=== PATIENT | male | born 1935 | race African-American/Black ===

== ENCOUNTER 2021-08-12 10:01 | Outpatient (CLI) | payer MEDICARE, MEDICAID | END 2021-08-12 10:02 | disposition home or self-care (01) | LOC: BICULT 10:01 | PROVIDERS: ATTEND Family Medicine | DX: Z12.2 Encounter for screening for malignant neoplasm of respiratory organs (principal); Z13.6 Encounter for screening for cardiovascular disorders; Z87.891 Personal history of nicotine dependence | CPT/HCPCS: 71271; 76775 ==

== ENCOUNTER 2025-07-13 07:28 | Inpatient (IN) | payer OTHER, MEDICAID ==
[2025-07-13] MEDS ORDERED: Melatonin 3 MG TAB PO PRN (11:25)
[2025-07-13] MEDS ORDERED: Calcium Carbonate 500 MG ChewTAB PO PRN (11:25)
[2025-07-13] MEDS ORDERED: Acetaminophen 325 MG TAB PO PRN (11:25)
[2025-07-13] MEDS ORDERED: Bisacodyl 10 MG SUPP PR PRN (11:25)
[2025-07-13] MEDS ORDERED: Senokot S 8.6-50 MG TAB PO PRN (11:25)
[2025-07-13] MEDS ORDERED: Glucagon 1 MG/ML KIT IM PRN (11:35)
[2025-07-13] MEDS ORDERED: Dextrose 50% Abboject 50 ML SYRINGE SLOW IVP PRN (11:35)
[2025-07-13 11:45] VITALS: BMI 28.3
[2025-07-13 12:18] LABS: Magnesium 2.4 mg/dL (1.6-2.6)
[2025-07-13] MEDS ORDERED: HYDROcodone/Acetaminophen 5/325 mg Tablet PO PRN (13:32)
[2025-07-13] MEDS ORDERED: HYDROcodone/Acetaminophen 10/325 mg Tablet PO PRN (13:32)
[2025-07-14 07:16] LABS: #Basophils 0.06 10x3/uL (0.0-0.2); #Eosinophils 0.34 10x3/uL (0.0-0.7); #Monocytes 0.80 10x3/uL (0.11-0.59); #Neutrophils 6.51 10x3/uL (1.40-6.50); %Basophils 0.6 % (0.0-1.0); %Eosinophils 3.2 % (0.0-10.0); %Lymphocytes 27.6 % (21.0-51.0); %Monocytes 7.5 % (0.0-10.0); %Neutrophils 60.6 % (42.0-75.0); Hematocrit 45.9 % (42.0-52.0); Hemoglobin 15.5 g/dL (14.0-18.0); Mean Corpuscular Hemoglobin 29.3 pg (27.0-31.0); Mean Corpuscular Volume 86.8 fL (78.0-98.0); Platelet Count 149 10x3/uL (130-400); Red Blood Cell (RBC) Count 5.29 mill/uL (4.70-6.10); White Blood Cell (WBC) Count 10.72 10x3/uL (4.8-10.8)
[2025-07-14 07:37] LABS: Anion Gap 9 mmol/L (10-20); BUN (Urea Nitrogen) 14 mg/dL (8.4-25.7); Calc. Creatinine Clearance 50 mL/min (70-130); Calcium 10.4 mg/dL (7.8-10.44); Carbon Dioxide 24 mmol/L (23-31); Chloride 109 mmol/L (98-107); Glucose 110 mg/dL (83-110); Magnesium 2.3 mg/dL (1.6-2.6); Potassium 4.1 mmol/L (3.5-5.1); Sodium 138 mmol/L (136-145)
[2025-07-14] MEDS: Enoxaparin 40 MG (0.4 mL) SYRINGE SC SCH (09:23)
[2025-07-14 16:36] VITALS: BP 121/73; TEMP 98.3
== END 2025-07-14 17:01 | disposition home or self-care (01) | DRG 392 ==
LOC: OBS 07:28 → INTOOBSV 07:28 → OBSVTOIN 07-14 13:17
PROVIDERS: ADMIT Internal Medicine; ATTEND Internal Medicine
DX: K59.03 Drug induced constipation (principal); F11.20 Opioid dependence, uncomplicated; E78.5 Hyperlipidemia, unspecified; M19.90 Unspecified osteoarthritis, unspecified site; G89.29 Other chronic pain; F41.1 Generalized anxiety disorder; I12.9 Hypertensive chronic kidney disease with stage 1 through stage 4 chronic kidney disease, or unspecified chronic kidney disease; N18.31 Chronic kidney disease, stage 3a; E11.22 Type 2 diabetes mellitus with diabetic chronic kidney disease; I44.1 Atrioventricular block, second degree; I44.0 Atrioventricular block, first degree; Z98.890 Other specified postprocedural states; Z83.3 Family history of diabetes mellitus; Z79.4 Long term (current) use of insulin; Z79.84 Long term (current) use of oral hypoglycemic drugs; Z79.899 Other long term (current) drug therapy
CPT/HCPCS: 36415; 36416; 80048; 83735; 84443; 85025; 93005; 93010; G0378; J1815